=== PATIENT | female | born 1995 | race Caucasian/White ===

== ENCOUNTER 2016-08-24 08:25 | Inpatient (IN) | payer OTHER ==
[~2016-08-24] VITALS: Ht 172.7 cm; Wt 80.3 kg
[~2016-08-24 08:25] MED LIST: ASCO500T8 PO; Docusate Sodium PO; FERR-74 PO; Ibuprofen PO; PREN1TAB78 PO
[2016-08-24] MEDS ORDERED: Oxytocin 30 Units/500 mL LR 30 UNITS in IV Premix 1 EACH IV PRN ×2 (08:30→10:00)
[2016-08-24] MEDS ORDERED: Hemorrhage Kit, Post Partum XX ONE ×2 (08:30→10:00)
[2016-08-24] MEDS ORDERED: Oxytocin 10 Unit/mL Inj IM PRN ×2 (08:30→10:00)
[2016-08-24] MEDS ORDERED: Lactated Ringer's 1,000 ML IV PRN (08:30)
[2016-08-24] MEDS ORDERED: Carboprost 250 mCg/mL Inj IM PRN ×2 (08:30→10:00)
[2016-08-24] MEDS ORDERED: Sodium Chloride LOK Flush 10 mL Syringe IVFLUSH PRN (08:30)
[2016-08-24] MEDS ORDERED: Methylergonovine 0.2 mg/mL Inj IM PRN ×2 (08:30→10:00)
[2016-08-24] MEDS ORDERED: Oxytocin 30 Units/500 mL LR Premix IV ONE (08:34)
--- NOTE | 2016-08-24 08:42 | PCM.HPANE ---
Patient Data Surgeon Admitting Provider:Eusebia Mckeon MD Attending Provider:Eusebia Mckeon MD Primary Care Physician:Jero Other Provider:Sonal Marr Anesthesia Reason for Visit Term Labor TERM LABOR Ht/WT & BMI Body Mass Index Allergies Coded Allergies: No Known Allergies (Unverified Allergy, Unknown, 08/01/14) Diabetes History Hx Diabetes?: No Medications Active Scripts Ferrous Sulfate (Feosol)325 Mg [id number] Mg PO DAILY #90 TABLET Prov:Agustina Hale [facility] 08/02/14 Ascorbic Acid (Vitamin C)500 Mg [id number] Mg PO DAILY #60 Prov:Agustina Hale [facility] 08/02/14 [Ibuprofen] (Motrin)800 MG TABLET No Conflict Qvbcm642 Mg PO Q6H PRN For Pain Prov:Agustina Hale [facility] 08/02/14 [Docusate Sodium] (Colace)100 MG CAPSULE No Conflict Kxpyi177 Mg PO BID Prov:Agustina Hale [facility] 08/02/14 Reported Medications Vits W-Ca,Fe,FA(<1Mg) ( Formula)1 Each Tablet1 Each PO DAILY 08/01/14 History History of ENT Problems?: No Hx of Heart Problems?: No Hx of Respiratory Problem?: No Hx Neurologic Problems?: No Hx of GI Problems?: No Hx of Problems?: No Female Hx: Positive for:: Currently (TOLAC) Hx Diabetes: No Smoking Status: Current Every Day Smoker Stop/Bang Risk Assessment Category Category 1A: Patient has history of documented sleep apnea, and HAS NOT received any narcotic, sedative or anesthesia administration during this stay. Category 1B: Patient has history of documented sleep apnea, and HAS received any narcotic , sedative or anesthesia administration during this stay Category 2: Patient has SUSPECTED Obstructive Sleep Apnea, and HAS received any narcotic , sedative or anesthesia administration during this stay. Category 3: Patient has SUSPECTED Obstructive Sleep Apnea and HAS NOT received narcotic, sedative or anesthesia administration during this stay. Category 4: Outpatient in Procedural Areas with known sleep apnea or who screen positive for High Risk via the STOP/BANG questionnaire. Exam Exam General Appearance: Alert, Oriented X3, Cooperative, Moderate Distress (with contractions) HEENT/AIRWAY: MP 1 Lungs: Normal Air Movement Heart: Exam Unremarkable Plan Impression Patient chart reviewed, patient interviewed and anesthestic plan with risks, benefits, and alternatives discussed, and informed consent obtained. ASA Physical Status: ASA1 Normal Healthy Anesthetic Plan: SAB, Epidural (combined CSE) Bene/Risks/Altern/Consents: Yes HP Complete Prior to Induction: Yes Clinton Sarah MD Aug 24, 2016 08:42
[2016-08-24 08:54] LABS: Mean Corpuscular Hemoglobin 26.9 pg (27.0-35.0); Mean Corpuscular Volume 84.7 fL (81-100)
[2016-08-24] MEDS ORDERED: Lactated Ringer's 1,000 ML IV SCH ×2 (09:19→09:57)
[2016-08-24] MEDS ORDERED: Lactated Ringer's 500 ML IV ONE (09:19)
[2016-08-24] MEDS ORDERED: EPHEDrine Sulfate 50 mg/mL Inj IVPUSH PRN (09:20)
[2016-08-24] MEDS ORDERED: Phenylephrine/NS-PF 100 mCg/mL 5 mL Syringe IVPUSH PRN (09:20)
[2016-08-24] MEDS ORDERED: Atropine 1 mg/10 mL (Code) Syringe IVPUSH PRN (09:20)
[2016-08-24] MEDS ORDERED: Ondansetron 2 mg/mL 2 mL Inj IVPUSH PRN (09:20)
[2016-08-24] MEDS ORDERED: fentaNYL 2 mCg/mL-Bupiv 0.125% 100 ML EPIDURAL SCH (09:20)
[2016-08-24] MEDS ORDERED: fentaNYL-PF 50 mCg/mL 2 mL Inj IVPUSH PRN (09:20)
[2016-08-24] MEDS ORDERED: Benzocaine (Dermoplast) 20% 60 Gm Spray TOPICAL PRN (10:00)
[2016-08-24] MEDS ORDERED: LANOlin HPA 7 Gm Ointment TOPICAL PRN (10:00)
[2016-08-24] MEDS ORDERED: Witch Hazel-Glycerin Pads TOPICAL PRN (10:00)
--- NOTE | 2016-08-24 10:09 | NUR ---
Social Work Note: Referral Received BRYAN Bejarano, AAC
--- NOTE | 2016-08-24 10:31 | HP ---
[address] [address] HISTORY AND PHYSICAL PATIENT: XANDER JUSTICE : 1995 MR#: [id number] ADMIT: 08/24/2016 JOB ID: [id number] CHIEF COMPLAINT: Contractions. HISTORY OF PRESENT ILLNESS: This is a 20-year-old, G4, P 3-0-0-3 female who presented at 39 plus 5 weeks gestation with EDC of August 26, 2016 complaining of regular uterine contractions. was complicated by history of section x1 in her first , followed by two successful VBACs, as well as varicella nonimmune and late entry to care. She presented to labor and delivery on the morning of the and was noted to be 8 cm dilated at the time of admission, so she was admitted in active labor. PAST MEDICAL HISTORY: None. SURGICAL HISTORY: section x1, with her first six years prior. OBSTETRICAL HISTORY: She had one section with her first , with two successful VBACs following this. She has also had short interval with two children within the last two years. She is also requesting permanent sterilization, with a consent that was signed in clinic previously. SOCIAL HISTORY: Noncontributory. PHYSICAL EXAMINATION: Objectively, at the time of admission, her blood pressure is 107/66, her heart rate is 79, she saturating 100% on room air. In general, she is awake, alert, oriented, in no acute distress. She is uncomfortable with contractions. Her abdomen is soft, nontender, nondistended. Gravid with size appropriate for dates. Her cervix is noted to be 8 cm dilated, and heart tones show 140s baseline, moderate variability, with accelerations present and contractions every 4 minutes. Cervix noted to be 8, 100% and with a bulging bag at the time of admission. LABORATORY DATA: Showed blood type of O positive, antibody screen negative, rubella immune, varicella nonimmune, hep B surface antigen negative, RPR nonreactive, HIV negative, GBS negative. ASSESSMENT: This is a 20-year-old, 4, para 3-0-0-3 female who is presenting in active labor at 8 cm dilated with a history of section x1. Planning on proceeding with a vaginal after section. PLAN: At this point in time, I will continue expectant management. Anesthesia is being contacted, as the patient desires an epidural. We will plan on proceeding with a sterilization, as her [facility] consent was signed 30 days in advance following delivery, and vaccinate her for her varicella nonimmune status.
--- NOTE | 2016-08-24 10:38 | OP ---
[address] [address] OPERATIVE REPORT PATIENT: XANDER JUSTICE : 1995 MR#: [id number] ADMIT: 08/24/2016 JOB ID: [id number] DATE OF SURGERY: 08/24/2016 PREOPERATIVE DIAGNOSIS(ES): 1. A 3-week intrauterine in active labor. 2. History of section x1, with two successful VBACs. 3. Late entry to care. 4. Short interval pregnancies. POSTOPERATIVE DIAGNOSIS(ES): 1. A 39-week intrauterine in active labor. 2. History of section x1, with two successful VBACs. 3. Late entry to care. 4. Short interval pregnancies. PROCEDURE PERFORMED: 1. Vaginal after section of a live born female , born on August 24, 2016 at 0936 hours weighing 6 pounds 13 ounces or 3105 g, Apgars of 9 at one minute, 9 at five minutes. SURGEON: Eusebia Mckeon MD. ANESTHESIA: Spinal. ESTIMATED BLOOD LOSS: 300 cc. FLUID REPLACEMENT: Crystalloid in labor. COMPLICATIONS: None apparent. FINDINGS: Live-born female infant with spontaneous cry and spontaneous movement of all four extremities and a first-degree perineal laceration. INDICATIONS: This is a 20-year-old G 4, P 3-0-0-3 female 39+ five weeks gestation with an EDC of August 26, 2016 who is presenting in active labor. is complicated by a history of section x1 with her first with two successful following this as well as short interval , varicella nonimmune status and late entry to care. laboratory data showed blood type of O positive, antibody screen negative, rubella immune, varicella nonimmune, hep B surface antigen negative, RPR nonreactive, HIV negative, GBS negative. At the time of admission, she was noted to be 8 cm dilated. An epidural was placed for pain relief. heart tones were reactive and reassuring throughout her time on Labor and Delivery. After her epidural was placed, I artificially ruptured membranes with a small amount of clear amniotic fluid returned. Within a half hour of this, she progressed to complete, and began to push, bringing the 's vertex to the perineum. PROCEDURE: The patient was noted to be complete and pushing. She was placed in dorsal lithotomy position. Prepped and draped in the usual sterile fashion for a vaginal delivery. She pushed. The head delivered spontaneously in the SHARIF position over an intact perineum. The anterior shoulder delivered easily, followed by the posterior shoulder. The remainder of the was then easily delivered. The cord was then clamped and cut after a 60 second cord clamping delay and passed to the mother's abdomen where nursing personnel were in attendance. Cord blood was then obtained and the Pitocin was started for active management of the placenta. The placenta then delivered intact spontaneously and was passed off the table. Examination of the uterus did reveal some small remaining membranes which were removed manually and she was firm with bimanual massage. Examination of the vaginal vault did not reveal any lacerations. Examination of the perineum showed a first-degree laceration, which was repaired with 4-0 Vicryl in a running, nonlocking fashion. She also had several perineal abrasions which were not repaired as they were hemostatic. The patient tolerated this procedure well. Recovered in Labor and Delivery with her infant. All sponge, needle, and instrument counts were correct. [facility]
[2016-08-24] MEDS ORDERED: CeFAZolin Inj 2 GM in IV Premix 1 EACH IV SCH (10:50)
[2016-08-24] MEDS ORDERED: Sodium Citrate-Citric Acid 15 mL Solution PO SCH (10:50)
[2016-08-24] MEDS ORDERED: Phenylephrine/NS-PF 100 mCg/mL 5 mL Syringe IVPUSH ONE (12:07)
[2016-08-24] MEDS ORDERED: Bupivacaine-MPF 0.25% 30 mL Inj ONE ×2 (12:07→13:02)
--- NOTE | 2016-08-24 12:37 | PCM.ANEP1 ---
Post Anesthesia Phase 1 PACU Phase 1 Assessment Vital Signs see anesthesia record Anesthetic Administered: Epidural Level of Alertness: Awake, talking WEI's with Equal Strength: No Pain: No Nausea or Vomiting: No Oxygen Delivery: Room Air Lungs: Normal Air Movement Dermatome Level: T12 (Symphysis Pubis) Clinton Sarah MD Aug 24, 2016 12:37
--- NOTE | 2016-08-24 12:37 | PCM.ANEP2 ---
Post Anesthesia Evaluation ASA/CMS Post Anesthesia VS in Patient's Normal Range?: Yes Resp Stable; Airway Patent?: Yes CV Function & Hydration Stable: Yes Mental Status Recovered?: Yes Pain control Satisfactory?: Yes N/V Control Satisfactory?: Yes Clinton Sarha MD Aug 24, 2016 12:37
[2016-08-24] MEDS ORDERED: Lidocaine 2%-Epi 1:100,000 20 mL Inj ONE (13:02)
[2016-08-24] MEDS ORDERED: Propofol 10,000 mCg/mL 20 mL Inj ONE (13:02)
[2016-08-24] MEDS ORDERED: Ondansetron 2 mg/mL 2 mL Inj ONE (13:02)
[2016-08-24] MEDS ORDERED: fentaNYL-PF 50 mCg/mL 2 mL Inj ONE (13:05)
--- NOTE | 2016-08-24 15:58 | OP ---
[address] [address] OPERATIVE REPORT PATIENT: XANDER JUSTICE : 1995 MR#: [id number] ADMIT: 08/24/2016 JOB ID: [id number] DATE OF SURGERY: 08/24/2016 PREOPERATIVE DIAGNOSIS(ES): Desires sterilization. day #zero following vaginal after section. POSTOPERATIVE DIAGNOSIS(ES): Desires sterilization. day #zero following vaginal after section. PROCEDURE PERFORMED: Bilateral tubal ligation. SURGEON: Eusebia Mckeon MD ANESTHESIA: Epidural ESTIMATED BLOOD LOSS: 10 cc. FLUID REPLACEMENT: 750 cc of crystalloid. FINDINGS: uterus. Normal-appearing fallopian tubes bilaterally. COMPLICATIONS: None apparent. INDICATIONS: This is a 20-year-old, G4, P4-0-0-4 female who is day #zero following a vaginal after section. She desired permanent sterilization. Consent had been signed in our clinic 30 days in advance in accordance with the [facility] requirements. After delivery, the risks, benefits, and alternatives were discussed with her including bleeding, infection, damage to bowel or bladder, failure rates and regret and she elected to proceed with a tubal ligation. PROCEDURE: The patient was taken to the operating room, where her epidural was bolused. She was prepped and draped in the usual sterile fashion. A 4 cm infraumbilical incision was made using a scalpel after injection of 5 cc of local anesthetic. This was carried down sharply to the level of the rectus fascia. The fascia was grasped with an Allis clamp and was incised sharply. This extension was carried bluntly bilaterally. The patient was placed in Trendelenburg position. A moist lap was placed into her abdomen to allow visualization of the fallopian tubes. First the left fallopian tube was identified and elevated with a [place] clamp. This was brought out to the fimbria to confirm the fallopian tube pathology. The mesosalpinx was then undermined with a hemostat and, using two separate stitches of 0 plain, medial and distal segments of the fallopian tubes were tied off and a 2 cm segment was then removed. Good hemostasis was achieved with the use of electrocautery on the stumps of the transected fallopian tube and the mesosalpinx. Attention was then turned to the right cornua and the patient was then airplaned to allow visualization. The right fallopian tube was grasped with a George clamp, walked to the fimbria to confirm correct anatomy, and then the mesosalpinx was undermined using a hemostat. The distal and medial section of the of the fallopian tube was tied with the plain gut suture, and the middle portion between the two sutures was then transected, removing an approximately 2 cm section of fallopian tube. Hemostasis was then ensured on this side using electrocautery. The lap was removed from the abdomen. The fascia was closed with 0 Vicryl and the skin was closed with 4-0 Vicryl. The patient tolerated this procedure well and recovered in with her infant. All sponge, needle and instrument counts were correct. [facility]
[2016-08-24] MEDS ORDERED: Sodium Chloride LOK Flush 10 mL Syringe IVFLUSH SCH (16:30)
--- NOTE | 2016-08-24 18:47 | NUR ---
Social Work Note: Initial Assessment D: Pt is a 20 year old female who gave to BG on 08/24/2016. Pt reported that she currently lives in [place] with JEN and three previous children. FOB is Ankush Linares. FOB stays at home with the children while Pt works. Pt reported that she is enrolled in [employer] and is receiving food stamps. Pt indicated that she and FOB have family and friends living in the immediate area who will be available to help care for BG if needed. Pt explained that she has everything that she will need to care for BG at home. Pt's UDS was positive for THC at the time of delivery. Pt reported that she has used THC throughout the with the most recent use being approximately one week ago. Pt began attending appointments at 26 weeks. Pt explained that she was late to care because she did not realize she was and had just started a new job. Pt reported that she was afraid to take time off work for medical appointments due to the fact that she had just started there. Pt indicated that she wasn't aware that she was because she had just given about three months prior to the beginning of this . Pt denied any history of DV. Pt reported no legal history. Pt reported a previous mental health diagnosis of depression but explained that she has not experienced depression since her teen years and has not been hospitalized for mental illness. A: Deferred P: Pt reported that she has a strong support system of family and friends. 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 Pt admits to smoking THC throughout and reported that she was late to care because she was unaware that she was . director staffing reported that Pt and family have been appropriate and affectionate with BG while in the hospital. [facility] director staffing reported no additional concerns. COMB MACHINE OPERATOR informed Pt that her THC use would prompt an informational report to CPS and Pt indicated that she understood. COMB MACHINE OPERATOR called CPS and provided the above information to Chief Media Officer Hillary Justice. Pt to be discharged once medically cleared by [facility] . BRYAN Bejarano, AAC
[2016-08-24] MEDS: oxyCODONE-Acetamin 5-325 mg Tablet PO PRN (22:31)
[2016-08-24] MEDS: Ascorbic Acid 500 mg Tablet PO SCH (22:32)
[2016-08-25] MEDS: oxyCODONE-Acetamin 5-325 mg Tablet PO PRN (05:29)
[2016-08-25 06:12] LABS: Mean Corpuscular Hemoglobin 26.8 pg (27.0-35.0); Mean Corpuscular Volume 85.8 fL (81-100)
[2016-08-25] MEDS ORDERED: Ascorbic Acid PO (07:52)
[2016-08-25] MEDS ORDERED: IBUP800T28 PO (07:52)
[2016-08-25] MEDS ORDERED: FERR-74 PO (07:52)
[2016-08-25] MEDS ORDERED: OXYC1TAB24 PO (07:52)
[2016-08-25] MEDS ORDERED: DOCU-41 PO (07:52)
--- NOTE | 2016-08-25 08:25 | PCM.PNOBPP ---
Subjective Date of Service Aug 25, 2016 Post : Vaginal Delivery after [place] Subjective 20-year-old G4 now P4 who presented in active labor at 39 weeks 5 days gestation. She has a history of section with 2 successful vaginal after . Mother is doing well bleeding goals. Lochia: Normal Pain Management: PO pain meds Gastrointestinal: Good Appetite Postop Activity: Ambulating Independently Labs Varus cell and non-immune, antibody screen negative, RPR nonreactive, hepatitis B surface antigen negative HIV negative Group B Strep Results: Negative Rubella: Immune Blood Type: O RH Type: Positive Labs Laboratory Tests 08/25/16 05:50: White Blood Count 10.8, Red Blood Count 3.65, Hemoglobin 9.8, Hematocrit 31.3, Mean Corpuscular Volume 85.8, Mean Corpuscular Hemoglobin 26.8, Mean Corpuscular Hemoglobin Concent 31.3, Red Cell Distribution Width 14.3, Platelet Count 212 Exam Vital Signs Vital Signs: VS reviewed, stable Exam Abdomen: Fundus firm Extremities: Edema 1+ Lungs: Clear to Auscultation, Normal Air Movement Heart: Regular Rate/Rhythm, No Murmurs/Rubs/Gallops General: Alert, Oriented X3 Surgical Wound : Incision General Appearence: Wound under dressing Dressing & Drainage Status: Dry & Intact, No Odor OB Post Assessment/Plan Assessment 20-year-old G4 now P4 who presented in active labor at 39 weeks 5 days gestation. Postop day 1 status post tubal ligation. She has a history of section with 2 successful vaginal after . She had a short interval and nonimmune, toxicology positive for cannabinoids Problems: (1) , delivered Plan: Continue routine care Status: Acute ICD Code: O34.21 (2) Status post tubal ligation at time of delivery, current hospitalization Plan: Continue routine postoperative care. Status: Acute ICD Code: O80 (3) Maternal varicella, non-immune Status: Acute ICD Code: O09.899 (4) Qualifiers: Weeks of gestation: 39 weeks Qualified Code: Z3A.39 - 39 weeks gestation of Status: Resolved ICD Code: Z33.1 Pain Management: Ibuprofen Percocet Pain Evaluation: Adequate Pain Control Post plan: Continue routine post care, Anticipate discharge home today Plan: Patient counseled on not using marijuana while breast-feeding. She will need varicella vaccination at visit in 6 weeks. Discharge home today. Attending Statement The patient was seen and examined together with Dr. Audra Hwang DO on 08/25/2016 and I agree with the history, exam and plan as outlined in the note above. AUDRA HWANG DO Aug 25, 2016 08:25 Agnieszka Patino MD Sep 06, 2016 07:56
--- NOTE | 2016-08-25 08:31 | PCM.DIOB ---
Obstetrical Disch Instruction Date of Service: Aug 25, 2016 Dates of Hospitalization Date of Hospital Admission Aug 24, 2016 at 08:26 Providers Admitting Physician: Eusebia Mckeon MD Primary Care Physician: Jero Attending Physician: Eusebia Mckeon MD Discharge Diagnosis Discharge Diagnosis 1. Vaginal after 2. Status post tubal ligation Post Operative diagnosis 1. Vaginal after 2. Status post tubal ligation 3. Late entry to care. 4. Short interval pregnancies. Problems: (1) , delivered Plan: Continue routine care Status: Acute ICD Code: O34.21 (2) Status post tubal ligation at time of delivery, current hospitalization Plan: Continue routine postoperative care. Status: Acute ICD Code: O80 (3) Maternal varicella, non-immune Plan: Varicella vaccine to be given at visit in 6 weeks. Status: Acute ICD Code: O09.899 (4) Qualifiers: Weeks of gestation: 39 weeks Qualified Code: Z3A.39 - 39 weeks gestation of Status: Resolved ICD Code: Z33.1 Diet Discharge Diet: No restrictions Activity Discharge Activity-General: Pelvic Rest for 6 weeks, Balance rest and activity Dressing and Incisional Care Dressing Care: Keep dressing clean, dry & intact Hygiene: May shower Additional Instructions Discharge Instructions Please continue to take your vitamin. Please take the iron and vitamin c together for your anemia. Do not take more pain medication (Percocet) than is necessary -- less is better. Percocet pills have Tylenol (acetaminophen) in them at 325mg per pill. Do not take Tylenol in addition to your pain medication but should take one or the other. Both iron and Percocet can give you constipation so you have also been given a prescription for docusate to keep you regular. Be sure to follow up [facility] 4-6 weeks at [facility]. Pelvic rest for 6 weeks (nothing per vagina including intercourse, tampons) If you have a fever greater than 100.4, please call [facility]. There is always someone application assistant to talk to. If you have an increase in bleeding, call [facility]. If you have a lot of bleeding suddenly, especially if you have symptoms of dizziness & weakness with it, get emergency help. When you see [facility] in two weeks, you will be informed of the results of all the labs. If you start experiencing extreme depression, especially if you feel that you are a danger to yourself or your family, seek emergency help. You have been through a lot -- BE SURE TO TAKE CARE OF YOURSELF. Follow Up Plan Follow-up Provider (F9): Eusebia Mckeon MD Follow-up appointment: Weeks (4-6) AUDRA HWANG DO Aug 25, 2016 08:31
[2016-08-25] MEDS: Ascorbic Acid 500 mg Tablet PO SCH (09:25)
--- NOTE | 2016-08-25 09:49 | PCM.DC.OB ---
Obstetrical Discharge Summary Date of Service Aug 25, 2016 Date of hospital admission Aug 24, 2016 at 08:26 Date of Discharge: Aug 25, 2016 Providers Admitting Physician: Eusebia Mckeon MD Primary Care Physician: Nopcamron Attending Physician: Eusebia Mckeon MD Diagnosis at Time of Discharge 1. Vaginal after 2. Status post tubal ligation Problems: (1) , delivered Plan: Continue routine care Status: Acute ICD Code: O34.21 (2) Status post tubal ligation at time of delivery, current hospitalization Plan: Continue routine postoperative care. Status: Acute ICD Code: O80 (3) Maternal varicella, non-immune Plan: Varicella vaccine to be given at visit in 4-6 weeks. Status: Acute ICD Code: O09.899 (4) Qualifiers: Weeks of gestation: 39 weeks Qualified Code: Z3A.39 - 39 weeks gestation of Status: Resolved ICD Code: Z33.1 Invasive procedures 1. Vaginal after 2. Tubal ligation Date of Procedure: Aug 24, 2016 Brief History and Physical: History from day of admission: HISTORY OF PRESENT ILLNESS: This is a 20-year-old, G4, P 3-0-0-3 female who presented at 39 plus 5 weeks gestation with EDC of August 26, 2016 complaining of regular uterine contractions. was complicated by history of section x1 in her first , followed by two successful VBACs, as well as varicella nonimmune and late entry to care. She presented to labor and delivery on the morning of the and was noted to be 8 cm dilated at the time of admission, so she was admitted in active labor. PAST MEDICAL HISTORY: None. SURGICAL HISTORY: section x1, with her first six years prior. OBSTETRICAL HISTORY: She had one section with her first , with two successful VBACs following this. She has also had short interval with two children within the last two years. She is also requesting permanent sterilization, with a consent that was signed in clinic previously. SOCIAL HISTORY: Noncontributory. Eusebia Mckeon MD 08/24/16 1004 Exam on day of discharge: vital signs stable and normal, well-nourished well-appearing, heart regular rate and rhythm no murmurs, lungs clear to auscultation bilaterally with good air movement. Abdomen soft, uterine fundus firm. Dressing over umbilical incision dry with minimal amount of blood visible underneath. +1 edema in bilateral lower extremities. Appropriate mood and affect. Hospital Course: This is a 20-year-old, G4, P 3-0-0-3 female who presented at 39 plus 5 weeks gestation with regular uterine contractions. She quickly progressed to complete and with expulsive efforts delivered a term female . course has been unremarkable. Mother is meeting post goals. Mother and infant discharged home in stable condition. ([Docusate Sodium]) 100 MG CAPSULE 100 MG PO BID Prescribed by: SHYLA GOMES CNM ([Ibuprofen]) 800 MG TABLET 800 MG PO Q6H PRN PRN For Pain Prescribed by: SHYLA GOMES CNM ([Ascorbic Acid]) 500 MG TABLET 500 MG PO DAILY Take with Iron Prescribed by: AUDRA HWANG DO Ascorbic Acid (Vitamin C) 500 Mg Tablet 500 MG PO DAILY Prescribed by: SHYLA GOMES CNM Docusate Sodium (Colace) 100 Mg Capsule 100 MG PO DAILY PRN PRN For Constipation Prescribed by: AUDRA HWANG DO Ferrous Sulfate (Feosol) 325 Mg Tablet 325 MG PO DAILY Prescribed by: SHYLA GOMES CNM Ferrous Sulfate (Feosol) 325 Mg Tablet 325 MG PO DAILY Take with Vitamin C Prescribed by: AUDRA HWANG DO Ibuprofen (Ibuprofen) 800 Mg Tablet 800 MG PO Q6H PRN PRN For Pain Prescribed by: AUDRA HWANG DO Vits W-Ca,Fe,FA(<1Mg) ( Formula) 1 Each Tablet 1 EACH PO DAILY (Reported) oxyCODONE-Acetaminophen 5-325 mg (oxyCODONE-Acetaminophen 5-325 mg) 1 Each Tablet 1-2 TAB PO Q4H PRN PRN For Pain Prescribed by: AUDRA HWANG DO Disposition Discharge home Follow-up plan 4[facility]. Discharge Diet: No restrictions Discharge Activity-General: Pelvic Rest for 6 weeks, Balance rest and activity Patient instructions Please continue to take your vitamin. Please take the iron and vitamin c together for your anemia. Do not take more pain medication (Percocet) than is necessary -- less is better. Percocet pills have Tylenol (acetaminophen) in them at 325mg per pill. Do not take Tylenol in addition to your pain medication but should take one or the other. Both iron and Percocet can give you constipation so you have also been given a prescription for docusate to keep you regular. Be sure to follow up in 4-6 weeks at [facility]. Pelvic rest for 6 weeks (nothing per vagina including intercourse, tampons) If you have a fever greater than 100.4, please call [facility]. There is always someone senior national account manager to talk to. If you have an increase in bleeding, call [facility]. If you have a lot of bleeding suddenly, especially if you have symptoms of dizziness & weakness with it, get emergency help. When you see [facility] in two weeks, you will be informed of the results of all the labs. If you start experiencing extreme depression, especially if you feel that you are a danger to yourself or your family, seek emergency help. You have been through a lot -- BE SURE TO TAKE CARE OF YOURSELF. AUDRA HAWNG DO Aug 25, 2016 09:49
[2016-08-25 10:15] VITALS: BP 113/71; PULSE 89; RESP 18
--- NOTE | 2016-08-28 10:55 | PATH ---
SURGICAL PATHOLOGY Attending Physician:Eusebia Mckeon, CASE STATUS: Signed Out PATIENT NAME: XANDER JUSTICE PID: [id number] : 1995 DATE COLLECTED:08/24/2016 00:00 SPECIMEN: 1: Fallopian Tube, Sterilization 2: Fallopian Tube, Sterilization CLINICAL HISTORY: 1). RIGHT FALLOPIAN TUBE PORTION 2). LEFT FALLOPIAN TUBE PORTION FINAL DIAGNOSIS: 1-2. Segments of Right and Left Fallopian Tubes (Sterilization Procedure): No significant pathologic change. ICD10 Z30.2 GROSS DESCRIPTION: The specimen is received in two formalin filled containers labeled with the patient's name. 1). The specimen a sublabeled "right fallopian tube" and consists of a nunez-peña rough cylindrical-shaped portion of tissue which measures 1.4 x 0.8 x 0.6 CM. The specimen is inked blue. The specimen is sectioned into 4 pieces and entirely submitted in cassette 1A. 2). The specimen is sublabeled "left fallopian tube" and consists of a nunez-peña rough cylindrical-shaped portion of tissue which measures 1.7 x 0.8 x 0.7 CM. The specimen is inked blue. The specimen is sectioned into 4 pieces and entirely submitted in cassette 2A. 08/26/2016 [facility] ICD-9 CODES: CPT CODES: 1: 13285 2: 66905 Electronically Signed Out Raul Ovalle MD [facility] Pathology [facility] [address], [place] [address] Technical component performed at [facility], [address] [place] [address] Ave[address], [address]
== END 2016-08-25 14:37 | disposition home or self-care (01) | DRG 767 ==
LOC: FBCO 08:25 → FBC 08:26
PROVIDERS: ADMIT Obstetrics & Gynecology; ATTEND Obstetrics & Gynecology
PROC: 0UB70ZZ Excision of Bilateral Fallopian Tubes, Open Approach (ICD-10-PCS; 2016-08-24)
PROC: 0HQ9XZZ Repair Perineum Skin, External Approach (ICD-10-PCS; 2016-08-24)
PROC: 10E0XZZ Delivery of Products of Conception, External Approach (ICD-10-PCS; principal; 2016-08-24 11:20)
DX: O70.0 First degree perineal laceration during delivery (principal); Z37.0 Single live birth; Z3A.39 39 weeks gestation of pregnancy; O34.219 Maternal care for unspecified type scar from previous cesarean delivery; Z30.2 Encounter for sterilization